=== PATIENT | male | born 1990 | race Caucasian/White ===

== ENCOUNTER 2017-04-05 20:22 | Emergency (ER) | payer MEDICAID, OTHER ==
[~2017-04-05] VITALS: Ht 172.7 cm; Wt 90.0 kg
[~2017-04-05 20:22] MED LIST: BENZ2TAB10 PO; CHOL100034 PO; FLUO-191 PO; HALO5 PO; QUET300T2 PO
[2017-04-05 20:43] LABS: BASOPHILS # (AUTO) 0.04 K/uL (0.00-0.20); BASOPHILS % (AUTO) 0.6 % (0.0-2.0); EOSINOPHILS % (AUTO) 4.13 % (1.0-6.0); HEMATOCRIT 41.4 % (41-53); HEMOGLOBIN 13.9 g/dL (13.5-17.5); LYMPHOCYTES # (AUTO) 3.3 K/uL (1.0-4.8); MEAN CORPUSCULAR HEMOGLOBIN 29.3 pg (26.0-34.0); MEAN CORPUSCULAR HGB CONC 33.6 G/dL (31.0-37.0); MEAN CORPUSCULAR VOLUME 87 fL (80-100); MONOCYTES # (AUTO) 0.9 K/uL (0.1-1.0); MONOCYTES % (AUTO) 12.3 % (2.0-9.0); NEUTROPHILS # (AUTO) 2.8 K/uL (1.8-7.7); PLATELET COUNT (AUTO) 189 K/uL (150-450); RED BLOOD CELL COUNT(AUTO) 4.74 MIL/uL (4.50-5.90); RED CELL DISTRIBUTION WIDTH 13.6 % (11.5-14.5); WHITE BLOOD COUNT (AUTO) 7.3 K/uL (4.5-11.0)
[2017-04-05 20:53] LABS: ANION GAP 7 mmol/L (8-16); CALCIUM, TOTAL 8.7 mg/dL (8.8-10.5); CARBON DIOXIDE 31 mmol/L (22-29); CHLORIDE 105 mmol/L (98-107); CREATININE 0.69 mg/dL (0.60-1.30); GLOMERULAR FILTR. RATE CALC > 60 mL/min (>60); POTASSIUM 4.1 mmol/L (3.5-5.1); SODIUM SERUM 143 mmol/L (136-145); UREA NITROGEN, BLOOD 7 mg/dL (7-18)
[2017-04-05 20:59] LABS: ALANINE AMINOTRANSFERASE 25 U/L (12-78); ALBUMIN 3.8 g/dL (3.4-5.0); ASPARTATE AMINOTRANSFERASE 22 U/L (15-37); BILIRUBIN,TOTAL 0.2 mg/dL (0.1-1.0)
[2017-04-06] MEDS ORDERED: LORazepam 2 MG/ML VIAL IVP ONE (00:45)
[2017-04-06] MEDS ORDERED: LORazepam 2 MG/ML VIAL IM ONE (00:45)
[2017-04-06] MEDS ORDERED: HALOPERIDOL LACTATE 5 MG/ML VIAL IM ONE (00:45)
[2017-04-06] MEDS ORDERED: DiphenhydrAMINE HCL 50 MG/ML VIAL IM ONE (00:45)
[2017-04-06 05:30] VITALS: BP 121/72
== END 2017-04-06 05:58 | disposition home or self-care (01) ==
LOC: EMS 20:24
DX: F15.151 Other stimulant abuse with stimulant-induced psychotic disorder with hallucinations (principal); F20.9 Schizophrenia, unspecified; F17.210 Nicotine dependence, cigarettes, uncomplicated
CPT/HCPCS: 36415; 80053; 80307; 85025; 96372; 99284; G0480; J1200; J1630; J2060

== ENCOUNTER 2017-04-22 11:09 | Inpatient (IN) | payer MEDICAID ==
[~2017-04-22] VITALS: Ht 180.3 cm; Wt 93.9 kg
[2017-04-22 12:32] VITALS: BP 140/75
[2017-04-22] MEDS ORDERED: HALO10 PO (12:43)
[2017-04-22] MEDS ORDERED: ZOLPIDEM TARTRATE 10 MG TABLET PO PRN (12:45)
[2017-04-22] MEDS ORDERED: LORazepam 2 MG TABLET PO PRN (12:45)
[2017-04-22] MEDS ORDERED: HALOPERIDOL 5 MG TABLET PO PRN (12:45)
[2017-04-22] MEDS ORDERED: INFLUENZA VIRUS VACCINE QVS 2017-18 (3YR+)/PF 60 MCG/0.5 ML SYRINGE IM ONE (15:00)
[2017-04-22 16:08] VITALS: BP 120/72
[2017-04-22] MEDS: BENZTROPINE MESYLATE 2 MG TABLET PO SCH (16:20)
[2017-04-22] MEDS: HALOPERIDOL 10 MG TABLET PO SCH (20:29)
[2017-04-23 01:32] VITALS: BP 110/64
[2017-04-23 07:46] LABS: BASOPHILS % (AUTO) 0.5 % (0.0-2.0); EOSINOPHILS % (AUTO) 2.6 % (1.0-6.0); HEMOGLOBIN 13.7 g/dL (13.5-17.5); LYMPHOCYTES # (AUTO) 2.1 K/uL (1.0-4.8); LYMPHOCYTES % (AUTO) 29.1 % (22.0-44.0); MEAN CORPUSCULAR HEMOGLOBIN 29.7 pg (26.0-34.0); MEAN CORPUSCULAR HGB CONC 34.2 G/dL (31.0-37.0); MEAN CORPUSCULAR VOLUME 87 fL (80-100); MONOCYTES # (AUTO) 0.8 K/uL (0.1-1.0); MONOCYTES % (AUTO) 11.2 % (2.0-9.0); NEUTROPHILS % (AUTO) 56.6 % (40.0-70.0); PLATELET COUNT (AUTO) 192 K/uL (150-450); RED CELL DISTRIBUTION WIDTH 13.8 % (11.5-14.5); WHITE BLOOD COUNT (AUTO) 7.2 K/uL (4.5-11.0)
[2017-04-23 07:54] LABS: HEMOGLOBIN A1C 5.7 % (4.5-6.2)
[2017-04-23 08:12] LABS: APPEARANCE,URINE TURBID (CLEAR); GLUCOSE, URINE (UA) NEGATIVE (NEGATIVE); KETONES,URINE NEGATIVE (NEGATIVE); LEUKOCYTE ESTERASE ,URINE NEGATIVE (NEGATIVE); OCCULT BLOOD,URINE NEGATIVE (NEGATIVE); PROTEIN,URINE POS 1+ (NEGATIVE)
[2017-04-23 08:28] LABS: ALANINE AMINOTRANSFERASE 40 U/L (12-78); ALBUMIN 3.7 g/dL (3.4-5.0); ANION GAP 8 mmol/L (8-16); ASPARTATE AMINOTRANSFERASE 35 U/L (15-37); BILIRUBIN,TOTAL 0.9 mg/dL (0.1-1.0); CALCIUM, TOTAL 8.5 mg/dL (8.8-10.5); CARBON DIOXIDE 29 mmol/L (22-29); CHLORIDE 102 mmol/L (98-107); CHOL/HDL RATIO 3.5 (4.2-7.3); CREATININE 0.78 mg/dL (0.60-1.30); GLOMERULAR FILTR. RATE CALC > 60 mL/min (>60); POTASSIUM 3.8 mmol/L (3.5-5.1); SODIUM SERUM 139 mmol/L (136-145); THYROID STIMULATING HORMONE 1.56 uIU/mL (0.36-3.74); TOTAL PROTEIN, SERUM 6.2 g/dL (6.4-8.2); UREA NITROGEN, BLOOD 13 mg/dL (7-18)
[2017-04-23 08:51] LABS: ADD UA MICROSCOPIC YES
[2017-04-23 08:53] LABS: RBC,URINE None Seen /HPF (0-2); WBC,URINE None Seen /HPF (0-5)
[2017-04-23 08:54] LABS: AMORPHOUS SEDIMENT,UR Many /LPF (None Seen)
[2017-04-23] MEDS: BENZTROPINE MESYLATE 2 MG TABLET PO SCH ×2 (08:54→16:07)
[2017-04-23] MEDS: FLUoxetine HCL 20 MG CAPSULE PO SCH (08:55)
[2017-04-23 08:56] VITALS: BP 129/73
[2017-04-23 16:00] VITALS: BP 106/66
[2017-04-23] MEDS: OLANZapine 10 MG TABLET PO SCH (20:31)
[2017-04-23] MEDS: HALOPERIDOL 10 MG TABLET PO SCH (20:31)
[2017-04-24 00:01] VITALS: BP 103/60
[2017-04-24 08:37] VITALS: BP 99/63
[2017-04-24] MEDS: FLUoxetine HCL 20 MG CAPSULE PO SCH (08:58)
[2017-04-24] MEDS: BENZTROPINE MESYLATE 2 MG TABLET PO SCH ×2 (08:59→16:56)
[2017-04-24 16:04] VITALS: BP 103/60
[2017-04-24] MEDS: HALOPERIDOL 10 MG TABLET PO SCH (20:11)
[2017-04-24] MEDS: OLANZapine 10 MG TABLET PO SCH (20:12)
[2017-04-25 01:15] VITALS: BP 110/62
[2017-04-25 08:01] VITALS: BP 117/73
[2017-04-25] MEDS: FLUoxetine HCL 20 MG CAPSULE PO SCH (08:36)
[2017-04-25] MEDS: BENZTROPINE MESYLATE 2 MG TABLET PO SCH ×2 (08:36→16:16)
[2017-04-25] MEDS ORDERED: BENZOCAINE/MENTHOL LOZENGE MM PRN (08:45)
[2017-04-25] MEDS ORDERED: IBUPROFEN 600 MG TABLET PO PRN (08:45)
[2017-04-25] MEDS ORDERED: MAGNESIUM HYDROXIDE SUSPENSION 30 ML UDCUP PO PRN (08:45)
[2017-04-25] MEDS ORDERED: ACETAMINOPHEN 325 MG TABLET PO PRN (08:45)
[2017-04-25] MEDS ORDERED: CloNIDine HCL 0.1 MG TABLET PO PRN (08:45)
[2017-04-25] MEDS ORDERED: BACITRACIN 28.4 GM OINTMENT TP PRN (08:45)
[2017-04-25] MEDS ORDERED: MAG HYDROX/AL HYDROX/SIMETH ES 30 ML SUSPENSION UDCUP PO PRN (08:45)
[2017-04-25] MEDS ORDERED: ONDANSETRON HCL 4 MG TABLET PO PRN (08:45)
[2017-04-25] MEDS ORDERED: LOPERAMIDE HCL 2 MG CAPSULE PO PRN (08:45)
[2017-04-25] MEDS ORDERED: ALBUTEROL SULFATE HFA 90 MCG/PUFF 8 GM INHALER IH PRN (08:45)
[2017-04-25] MEDS ORDERED: PETROLATUM,WHITE 71 GM JELLY TP PRN (08:45)
[2017-04-25 16:02] VITALS: BP 107/61
[2017-04-25] MEDS: HALOPERIDOL 10 MG TABLET PO SCH (20:24)
[2017-04-25] MEDS: OLANZapine 10 MG TABLET PO SCH (20:24)
[2017-04-26 01:03] VITALS: BP 115/60
[2017-04-26 08:24] VITALS: BP 101/68
[2017-04-26] MEDS: FLUoxetine HCL 20 MG CAPSULE PO SCH (08:39)
[2017-04-26] MEDS: BENZTROPINE MESYLATE 2 MG TABLET PO SCH (08:39)
[2017-04-26] MEDS ORDERED: OLAN10TA3 PO (11:55)
[2017-04-26] MEDS ORDERED: FLUO-191 PO (11:58)
[2017-04-26] MEDS ORDERED: BENZ2TAB10 PO (11:58)
== END 2017-04-26 14:30 | disposition home or self-care (01) | DRG 750 ==
LOC: EDSTATUS 11:32 → B2S 13:05
PROVIDERS: ATTEND Psychiatry & Neurology Child & Adolescent Psychiatry
DX: F25.0 Schizoaffective disorder, bipolar type (principal); F23 Brief psychotic disorder; E55.9 Vitamin D deficiency, unspecified; G47.00 Insomnia, unspecified; F17.200 Nicotine dependence, unspecified, uncomplicated; F15.10 Other stimulant abuse, uncomplicated; F12.90 Cannabis use, unspecified, uncomplicated; Z71.6 Tobacco abuse counseling; Z71.51 Drug abuse counseling and surveillance of drug abuser; Z28.21 Immunization not carried out because of patient refusal
CPT/HCPCS: 80307; 83036; 84439; 84443

== ENCOUNTER 2017-05-02 15:11 | Inpatient (IN) | payer MEDICAID ==
[~2017-05-02] VITALS: Ht 180.3 cm; Wt 92.4 kg
[~2017-05-02 15:11] MED LIST changes: -CHOL100034 PO; +HALO10 PO; -HALO5 PO; +OLAN10TA3 PO; -QUET300T2 PO
[2017-05-02] MEDS ORDERED: ZOLPIDEM TARTRATE 10 MG TABLET PO PRN (16:15)
[2017-05-02] MEDS ORDERED: HALOPERIDOL LACTATE 5 MG/ML VIAL IM ONE (16:30)
[2017-05-02] MEDS ORDERED: DiphenhydrAMINE HCL 50 MG/ML VIAL IM ONE (16:30)
[2017-05-02] MEDS ORDERED: LORazepam 2 MG/ML VIAL IM ONE (16:30)
[2017-05-02] MEDS ORDERED: HALOPERIDOL LACTATE 5 MG/ML VIAL ONE (16:33)
[2017-05-02] MEDS ORDERED: DiphenhydrAMINE HCL 50 MG/ML VIAL ONE (16:33)
[2017-05-02] MEDS ORDERED: LORazepam 2 MG/ML VIAL ONE (16:33)
[2017-05-02 16:40] VITALS: BP 119/60
[2017-05-02] MEDS ORDERED: INFLUENZA VIRUS VACCINE QVS 2017-18 (3YR+)/PF 60 MCG/0.5 ML SYRINGE IM ONE (17:00)
[2017-05-02 17:15] VITALS: BP 114/69
[2017-05-03 05:47] VITALS: BP 117/83
[2017-05-03 08:14] LABS: BASOPHILS % (AUTO) 0.3 % (0.0-2.0); EOSINOPHILS % (AUTO) 4.2 % (1.0-6.0); HEMATOCRIT 39.8 % (41-53); HEMOGLOBIN 13.5 g/dL (13.5-17.5); LYMPHOCYTES # (AUTO) 1.5 K/uL (1.0-4.8); MEAN CORPUSCULAR HEMOGLOBIN 29.4 pg (26.0-34.0); MEAN CORPUSCULAR HGB CONC 33.8 G/dL (31.0-37.0); MEAN CORPUSCULAR VOLUME 87 fL (80-100); MONOCYTES # (AUTO) 0.7 K/uL (0.1-1.0); NEUTROPHILS # (AUTO) 3.8 K/uL (1.8-7.7); NEUTROPHILS % (AUTO) 60.5 % (40.0-70.0); PLATELET COUNT (AUTO) 175 K/uL (150-450); RED BLOOD CELL COUNT(AUTO) 4.57 MIL/uL (4.50-5.90); RED CELL DISTRIBUTION WIDTH 13.6 % (11.5-14.5); WHITE BLOOD COUNT (AUTO) 6.2 K/uL (4.5-11.0)
[2017-05-03] MEDS ORDERED: BENZOCAINE/MENTHOL LOZENGE MM PRN (09:15)
[2017-05-03] MEDS ORDERED: LOPERAMIDE HCL 2 MG CAPSULE PO PRN (09:15)
[2017-05-03] MEDS ORDERED: MAGNESIUM HYDROXIDE SUSPENSION 30 ML UDCUP PO PRN (09:15)
[2017-05-03] MEDS ORDERED: CloNIDine HCL 0.1 MG TABLET PO PRN (09:15)
[2017-05-03] MEDS ORDERED: ONDANSETRON HCL 4 MG TABLET PO PRN (09:15)
[2017-05-03] MEDS ORDERED: BACITRACIN 28.4 GM OINTMENT TP PRN (09:15)
[2017-05-03] MEDS ORDERED: ACETAMINOPHEN 325 MG TABLET PO PRN (09:15)
[2017-05-03] MEDS ORDERED: MAG HYDROX/AL HYDROX/SIMETH ES 30 ML SUSPENSION UDCUP PO PRN (09:15)
[2017-05-03] MEDS ORDERED: ALBUTEROL SULFATE HFA 90 MCG/PUFF 8 GM INHALER IH PRN (09:15)
[2017-05-03] MEDS ORDERED: PETROLATUM,WHITE 71 GM JELLY TP PRN (09:15)
[2017-05-03] MEDS ORDERED: IBUPROFEN 600 MG TABLET PO PRN (09:15)
[2017-05-03 09:34] LABS: ALANINE AMINOTRANSFERASE 28 U/L (12-78); ALBUMIN 3.4 g/dL (3.4-5.0); ANION GAP 5 mmol/L (8-16); ASPARTATE AMINOTRANSFERASE 25 U/L (15-37); BILIRUBIN,TOTAL 0.6 mg/dL (0.1-1.0); CALCIUM, TOTAL 8.5 mg/dL (8.8-10.5); CARBON DIOXIDE 29 mmol/L (22-29); CHLORIDE 105 mmol/L (98-107); CHOL/HDL RATIO 2.5 (4.2-7.3); CREATININE 0.68 mg/dL (0.60-1.30); GLOMERULAR FILTR. RATE CALC > 60 mL/min (>60); POTASSIUM 3.7 mmol/L (3.5-5.1); SODIUM SERUM 139 mmol/L (136-145); THYROID STIMULATING HORMONE 0.71 uIU/mL (0.36-3.74); TOTAL PROTEIN, SERUM 6.3 g/dL (6.4-8.2); UREA NITROGEN, BLOOD 11 mg/dL (7-18)
[2017-05-03 09:47] VITALS: BP 113/57
[2017-05-03] MEDS: NICOTINE 21 MG/24 HOUR PATCH TD SCH (09:56)
[2017-05-03] MEDS: FLUoxetine HCL 20 MG CAPSULE PO SCH (11:11)
[2017-05-03] MEDS: BENZTROPINE MESYLATE 2 MG TABLET PO SCH ×2 (11:11→16:11)
[2017-05-03 18:16] VITALS: BP 117/65
[2017-05-03] MEDS: OLANZapine 10 MG TABLET PO SCH (20:26)
[2017-05-03] MEDS: HALOPERIDOL 10 MG TABLET PO SCH (20:26)
[2017-05-04 07:30] VITALS: BP 120/66
[2017-05-04 08:25] VITALS: BP 111/64
[2017-05-04] MEDS: NICOTINE 21 MG/24 HOUR PATCH TD SCH (09:41)
[2017-05-04] MEDS: OMEGA-3/DHA/EPA/FISH OIL 500 MG CAPSULE PO SCH (09:43)
[2017-05-04] MEDS: BENZTROPINE MESYLATE 2 MG TABLET PO SCH ×2 (09:43→16:57)
[2017-05-04] MEDS: CHOLECALCIFEROL (VIT D3) 1,000 UNITS TABLET PO SCH (09:43)
[2017-05-04] MEDS: FLUoxetine HCL 20 MG CAPSULE PO SCH (09:43)
[2017-05-04] MEDS: LORazepam 2 MG TABLET PO PRN (16:57)
[2017-05-04 17:03] VITALS: BP 128/75
[2017-05-04] MEDS: OLANZapine 10 MG TABLET PO SCH (20:33)
[2017-05-04] MEDS: HALOPERIDOL 10 MG TABLET PO SCH (20:33)
[2017-05-05 07:46] VITALS: BP 120/68
[2017-05-05 08:40] VITALS: BP 127/68
[2017-05-05] MEDS: FLUoxetine HCL 20 MG CAPSULE PO SCH (09:00)
[2017-05-05] MEDS: OMEGA-3/DHA/EPA/FISH OIL 500 MG CAPSULE PO SCH (09:00)
[2017-05-05] MEDS: BENZTROPINE MESYLATE 2 MG TABLET PO SCH ×2 (09:00→16:31)
[2017-05-05] MEDS: CHOLECALCIFEROL (VIT D3) 1,000 UNITS TABLET PO SCH (09:00)
[2017-05-05] MEDS: NICOTINE 21 MG/24 HOUR PATCH TD SCH (09:00)
[2017-05-05 16:00] VITALS: BP 118/68
[2017-05-05] MEDS: LORazepam 2 MG TABLET PO PRN (16:31)
[2017-05-05] MEDS: OLANZapine 10 MG TABLET PO SCH (20:42)
[2017-05-05] MEDS: HALOPERIDOL 10 MG TABLET PO SCH (20:42)
[2017-05-06 07:07] VITALS: BP 112/72
[2017-05-06] MEDS: NICOTINE 21 MG/24 HOUR PATCH TD SCH (09:00)
[2017-05-06 09:11] VITALS: BP 111/65
[2017-05-06] MEDS: BENZTROPINE MESYLATE 2 MG TABLET PO SCH ×2 (09:44→17:03)
[2017-05-06] MEDS: LORazepam 2 MG TABLET PO PRN ×2 (09:44→17:03)
[2017-05-06] MEDS: OMEGA-3/DHA/EPA/FISH OIL 500 MG CAPSULE PO SCH (09:44)
[2017-05-06] MEDS: FLUoxetine HCL 20 MG CAPSULE PO SCH (09:44)
[2017-05-06] MEDS: CHOLECALCIFEROL (VIT D3) 1,000 UNITS TABLET PO SCH (09:44)
[2017-05-06 16:00] VITALS: BP 127/79
[2017-05-06] MEDS: HALOPERIDOL 10 MG TABLET PO SCH (20:57)
[2017-05-07 06:40] VITALS: BP 108/67
[2017-05-07 08:10] VITALS: BP 121/71
[2017-05-07] MEDS: NICOTINE 21 MG/24 HOUR PATCH TD SCH (08:48)
[2017-05-07] MEDS: FLUoxetine HCL 20 MG CAPSULE PO SCH (08:48)
[2017-05-07] MEDS: CHOLECALCIFEROL (VIT D3) 1,000 UNITS TABLET PO SCH (08:48)
[2017-05-07] MEDS: OMEGA-3/DHA/EPA/FISH OIL 500 MG CAPSULE PO SCH (08:48)
[2017-05-07] MEDS: BENZTROPINE MESYLATE 2 MG TABLET PO SCH ×2 (08:48→16:20)
[2017-05-07 16:19] VITALS: BP 117/62
[2017-05-07] MEDS: HALOPERIDOL 10 MG TABLET PO SCH (20:30)
[2017-05-08 00:46] VITALS: BP 119/83
[2017-05-08] MEDS: FLUoxetine HCL 20 MG CAPSULE PO SCH (08:11)
[2017-05-08] MEDS: CHOLECALCIFEROL (VIT D3) 1,000 UNITS TABLET PO SCH (08:11)
[2017-05-08] MEDS: OMEGA-3/DHA/EPA/FISH OIL 500 MG CAPSULE PO SCH (08:11)
[2017-05-08] MEDS: NICOTINE 21 MG/24 HOUR PATCH TD SCH (08:11)
[2017-05-08] MEDS: BENZTROPINE MESYLATE 2 MG TABLET PO SCH (08:11)
[2017-05-08 08:42] VITALS: BP 135/79
[2017-05-08] MEDS ORDERED: VITAD1000 PO (12:54)
== END 2017-05-08 13:15 | disposition home or self-care (01) | DRG 750 ==
LOC: B3A 16:39
PROVIDERS: ADMIT Psychiatry & Neurology Child & Adolescent Psychiatry; ATTEND Psychiatry & Neurology Child & Adolescent Psychiatry
DX: F25.0 Schizoaffective disorder, bipolar type (principal); R45.851 Suicidal ideations; F41.9 Anxiety disorder, unspecified; F17.200 Nicotine dependence, unspecified, uncomplicated; F15.10 Other stimulant abuse, uncomplicated; E55.9 Vitamin D deficiency, unspecified; G47.00 Insomnia, unspecified; E78.5 Hyperlipidemia, unspecified; M54.5 Low back pain; F12.90 Cannabis use, unspecified, uncomplicated; Z71.51 Drug abuse counseling and surveillance of drug abuser; Z71.6 Tobacco abuse counseling; Z79.899 Other long term (current) drug therapy; Z28.21 Immunization not carried out because of patient refusal
CPT/HCPCS: 83036; 84439; 84443; 87081; 90471; J1200; J1630; J2060

== ENCOUNTER 2017-07-10 19:07 | Inpatient (IN) | payer MEDICAID ==
[~2017-07-10] VITALS: Ht 170.2 cm; Wt 87.1 kg
[~2017-07-10 19:07] MED LIST changes: -OLAN10TA3 PO; +VITAD1000 PO
[2017-07-10] MEDS ORDERED: HALOPERIDOL 5 MG TABLET PO PRN (19:45)
[2017-07-10] MEDS ORDERED: ZOLPIDEM TARTRATE 10 MG TABLET PO PRN (19:45)
[2017-07-10 20:27] VITALS: BP 135/83
[2017-07-10] MEDS: OLANZapine 10 MG TABLET PO SCH (20:38)
[2017-07-10] MEDS: BENZTROPINE MESYLATE 2 MG TABLET PO SCH (20:38)
[2017-07-10] MEDS: LORazepam 2 MG TABLET PO PRN (20:57)
[2017-07-11 02:17] VITALS: BP 133/70
[2017-07-11 08:02] VITALS: BP 130/76
[2017-07-11 08:43] LABS: BASOPHILS % (AUTO) 0.5 % (0.0-2.0); EOSINOPHILS % (AUTO) 2.9 % (1.0-6.0); HEMATOCRIT 42.1 % (41-53); LYMPHOCYTES # (AUTO) 2.3 K/uL (1.0-4.8); LYMPHOCYTES % (AUTO) 33.9 % (22.0-44.0); MEAN CORPUSCULAR HEMOGLOBIN 29.3 pg (26.0-34.0); MEAN CORPUSCULAR HGB CONC 33.4 G/dL (31.0-37.0); MEAN CORPUSCULAR VOLUME 88 fL (80-100); MONOCYTES # (AUTO) 0.7 K/uL (0.1-1.0); MONOCYTES % (AUTO) 9.8 % (2.0-9.0); NEUTROPHILS # (AUTO) 3.6 K/uL (1.8-7.7); NEUTROPHILS % (AUTO) 52.9 % (40.0-70.0); PLATELET COUNT (AUTO) 204 K/uL (150-450); RED BLOOD CELL COUNT(AUTO) 4.79 MIL/uL (4.50-5.90); RED CELL DISTRIBUTION WIDTH 13.2 % (11.5-14.5)
[2017-07-11] MEDS: FLUoxetine HCL 20 MG CAPSULE PO SCH (08:54)
[2017-07-11] MEDS: OLANZapine 5 MG RAPDIS TABLET PO PRN (08:54)
[2017-07-11] MEDS: BENZTROPINE MESYLATE 2 MG TABLET PO SCH ×2 (08:55→16:38)
[2017-07-11] MEDS: OLANZapine 10 MG TABLET PO SCH ×2 (09:00→16:38)
[2017-07-11 09:03] LABS: HEMOGLOBIN A1C 5.7 % (4.5-6.2)
[2017-07-11 09:14] LABS: APPEARANCE,URINE CLEAR (CLEAR); BILIRUBIN,URINE NEGATIVE (NEGATIVE); GLUCOSE, URINE (UA) NEGATIVE (NEGATIVE); KETONES,URINE NEGATIVE (NEGATIVE); LEUKOCYTE ESTERASE ,URINE NEGATIVE (NEGATIVE); NITRATE,URINE NEGATIVE (NEGATIVE); OCCULT BLOOD,URINE NEGATIVE (NEGATIVE); PH,URINE 6.5 (5.0-8.0); PROTEIN,URINE NEGATIVE (NEGATIVE); UROBILINOGEN,URINE 0.2 mg/dL (<=1.0)
[2017-07-11 09:34] LABS: ALANINE AMINOTRANSFERASE 21 U/L (12-78); ALBUMIN 3.3 g/dL (3.4-5.0); ALKALINE PHOSPHATASE 88 U/L (46-116); ANION GAP 4 mmol/L (8-16); ASPARTATE AMINOTRANSFERASE 14 U/L (15-37); BILIRUBIN,TOTAL 0.1 mg/dL (0.1-1.0); CALCIUM, TOTAL 8.6 mg/dL (8.8-10.5); CARBON DIOXIDE 31 mmol/L (22-29); CHLORIDE 104 mmol/L (98-107); CHOL/HDL RATIO 2.8 (4.2-7.3); CHOLESTEROL 135 mg/dL (131-200); CREATININE 0.78 mg/dL (0.60-1.30); FREE T4 (FREE THYROXINE) 0.86 ng/dL (0.76-1.46); GLOMERULAR FILTR. RATE CALC > 60 mL/min (>60); GLUCOSE,RANDOM 83 mg/dL (70-110); HDL CHOLESTEROL 48 mg/dL (40-60); LDL CHOL (CALC.) 68 mg/dL (0-130); POTASSIUM 3.8 mmol/L (3.5-5.1); SODIUM SERUM 139 mmol/L (136-145); THYROID STIMULATING HORMONE 1.16 uIU/mL (0.36-3.74); TOTAL PROTEIN, SERUM 6.4 g/dL (6.4-8.2); TRIGLYCERIDES 96 mg/dL (15-150); UREA NITROGEN, BLOOD 12 mg/dL (7-18)
[2017-07-11 16:02] VITALS: BP 130/86
[2017-07-11] MEDS ORDERED: ALBUTEROL SULFATE HFA 90 MCG/PUFF 8 GM INHALER IH PRN (19:30)
[2017-07-11] MEDS ORDERED: CloNIDine HCL 0.1 MG TABLET PO PRN (19:30)
[2017-07-11] MEDS ORDERED: MAG HYDROX/AL HYDROX/SIMETH ES 30 ML SUSPENSION UDCUP PO PRN (19:30)
[2017-07-11] MEDS ORDERED: PETROLATUM,WHITE 71 GM JELLY TP PRN (19:30)
[2017-07-11] MEDS ORDERED: MAGNESIUM HYDROXIDE SUSPENSION 30 ML UDCUP PO PRN (19:30)
[2017-07-11] MEDS ORDERED: BENZOCAINE/MENTHOL LOZENGE MM PRN (19:30)
[2017-07-11] MEDS ORDERED: IBUPROFEN 600 MG TABLET PO PRN (19:30)
[2017-07-11] MEDS ORDERED: ONDANSETRON HCL 4 MG TABLET PO PRN (19:30)
[2017-07-11] MEDS ORDERED: LOPERAMIDE HCL 2 MG CAPSULE PO PRN (19:30)
[2017-07-11] MEDS ORDERED: ACETAMINOPHEN 325 MG TABLET PO PRN (19:30)
[2017-07-11] MEDS ORDERED: BACITRACIN 28.4 GM OINTMENT TP PRN (19:30)
[2017-07-12 06:27] VITALS: BP 124/68
[2017-07-12 08:13] VITALS: BP 122/68
[2017-07-12] MEDS: BENZTROPINE MESYLATE 2 MG TABLET PO SCH ×2 (08:58→17:08)
[2017-07-12] MEDS: FLUoxetine HCL 20 MG CAPSULE PO SCH (08:58)
[2017-07-12] MEDS: CHOLECALCIFEROL (VIT D3) 1,000 UNITS TABLET PO SCH (08:58)
[2017-07-12] MEDS: OLANZapine 10 MG TABLET PO SCH ×2 (09:01→17:07)
[2017-07-12 16:00] VITALS: BP 108/76
[2017-07-12] MEDS: LORazepam 2 MG TABLET PO PRN (17:07)
[2017-07-13 06:52] VITALS: BP 104/62
[2017-07-13 08:09] VITALS: BP 110/65
[2017-07-13] MEDS: BENZTROPINE MESYLATE 2 MG TABLET PO SCH ×2 (09:02→16:23)
[2017-07-13] MEDS: FLUoxetine HCL 20 MG CAPSULE PO SCH (09:02)
[2017-07-13] MEDS: CHOLECALCIFEROL (VIT D3) 1,000 UNITS TABLET PO SCH (09:03)
[2017-07-13] MEDS: OLANZapine 10 MG TABLET PO SCH ×2 (09:03→16:23)
[2017-07-13 16:17] VITALS: BP 129/61
[2017-07-13] MEDS: LORazepam 2 MG TABLET PO PRN (16:24)
[2017-07-14 06:28] VITALS: BP 122/72
[2017-07-14 08:09] VITALS: BP 120/64
[2017-07-14] MEDS: LORazepam 2 MG TABLET PO PRN ×2 (08:51→16:27)
[2017-07-14] MEDS: FLUoxetine HCL 20 MG CAPSULE PO SCH (08:51)
[2017-07-14] MEDS: OLANZapine 10 MG TABLET PO SCH ×2 (08:51→16:27)
[2017-07-14] MEDS: CHOLECALCIFEROL (VIT D3) 1,000 UNITS TABLET PO SCH (08:51)
[2017-07-14] MEDS: BENZTROPINE MESYLATE 2 MG TABLET PO SCH ×2 (08:51→16:27)
[2017-07-14 16:00] VITALS: BP 123/70
[2017-07-15 00:35] VITALS: BP 122/65
[2017-07-15 08:28] VITALS: BP 134/75
[2017-07-15] MEDS: CHOLECALCIFEROL (VIT D3) 1,000 UNITS TABLET PO SCH (08:42)
[2017-07-15] MEDS: BENZTROPINE MESYLATE 2 MG TABLET PO SCH ×2 (08:42→16:56)
[2017-07-15] MEDS: LORazepam 2 MG TABLET PO PRN ×3 (08:42→17:08)
[2017-07-15] MEDS: FLUoxetine HCL 20 MG CAPSULE PO SCH (08:42)
[2017-07-15] MEDS: OLANZapine 10 MG TABLET PO SCH ×2 (08:42→16:56)
[2017-07-15] MEDS: OLANZapine 5 MG RAPDIS TABLET PO PRN (13:06)
[2017-07-15 16:00] VITALS: BP 116/86
[2017-07-16 05:22] VITALS: BP 133/83
[2017-07-16] MEDS: OLANZapine 10 MG TABLET PO SCH ×2 (09:00→16:16)
[2017-07-16] MEDS: FLUoxetine HCL 20 MG CAPSULE PO SCH (09:00)
[2017-07-16] MEDS: BENZTROPINE MESYLATE 2 MG TABLET PO SCH ×2 (09:00→16:17)
[2017-07-16] MEDS: CHOLECALCIFEROL (VIT D3) 1,000 UNITS TABLET PO SCH (09:00)
[2017-07-16 10:00] VITALS: BP 120/65
[2017-07-16] MEDS: LORazepam 2 MG TABLET PO PRN (16:17)
[2017-07-16 16:58] VITALS: BP 115/65
[2017-07-17 04:22] VITALS: BP 112/60
[2017-07-17 08:00] VITALS: BP 154/115
[2017-07-17] MEDS: FLUoxetine HCL 20 MG CAPSULE PO SCH (09:36)
[2017-07-17] MEDS: BENZTROPINE MESYLATE 2 MG TABLET PO SCH ×2 (09:36→16:41)
[2017-07-17] MEDS: CHOLECALCIFEROL (VIT D3) 1,000 UNITS TABLET PO SCH (09:36)
[2017-07-17] MEDS: OLANZapine 10 MG TABLET PO SCH ×2 (09:39→16:41)
[2017-07-17] MEDS: LORazepam 2 MG TABLET PO PRN (16:41)
[2017-07-17 16:48] VITALS: BP 118/76
[2017-07-18 03:48] VITALS: BP 132/85
[2017-07-18 08:10] VITALS: BP 112/63
[2017-07-18] MEDS: FLUoxetine HCL 20 MG CAPSULE PO SCH (09:29)
[2017-07-18] MEDS: OLANZapine 5 MG RAPDIS TABLET PO PRN (09:29)
[2017-07-18] MEDS: CHOLECALCIFEROL (VIT D3) 1,000 UNITS TABLET PO SCH (09:30)
[2017-07-18] MEDS: BENZTROPINE MESYLATE 2 MG TABLET PO SCH (09:30)
[2017-07-18] MEDS: OLANZapine 10 MG TABLET PO SCH (09:32)
[2017-07-18] MEDS ORDERED: OLAN10TA3 PO (11:11)
== END 2017-07-18 13:30 | disposition home or self-care (01) | DRG 750 ==
LOC: B2S 19:15 → B3A 21:53
PROVIDERS: ADMIT Psychiatry & Neurology Psychiatry; ATTEND Psychiatry & Neurology Psychiatry
DX: F20.9 Schizophrenia, unspecified (principal); F15.20 Other stimulant dependence, uncomplicated; R45.851 Suicidal ideations; F29 Unspecified psychosis not due to a substance or known physiological condition; E55.9 Vitamin D deficiency, unspecified; F10.10 Alcohol abuse, uncomplicated; F17.200 Nicotine dependence, unspecified, uncomplicated; F41.9 Anxiety disorder, unspecified; G47.00 Insomnia, unspecified; K59.00 Constipation, unspecified; M54.5 Low back pain; Z59.0 Homelessness
CPT/HCPCS: 83036; 84439; 84443

== ENCOUNTER 2017-08-06 15:09 | Emergency (ER) | payer MEDICAID, OTHER ==
[~2017-08-06] VITALS: Ht 175.3 cm; Wt 70.5 kg
[~2017-08-06 15:09] MED LIST changes: -HALO10 PO; +OLAN10TA3 PO; -VITAD1000 PO
[2017-08-06] MEDS ORDERED: RISP1TAB89 PO (15:15)
[2017-08-06] MEDS ORDERED: QUET50TA PO (15:15)
[2017-08-06 16:19] LABS: BASOPHILS % (AUTO) 0.7 % (0.0-2.0); EOSINOPHILS % (AUTO) 2.6 % (1.0-6.0); HEMATOCRIT 44.4 % (41-53); HEMOGLOBIN 14.9 g/dL (13.5-17.5); LYMPHOCYTES # (AUTO) 2.8 K/uL (1.0-4.8); MEAN CORPUSCULAR HEMOGLOBIN 28.8 pg (26.0-34.0); MEAN CORPUSCULAR HGB CONC 33.6 G/dL (31.0-37.0); MEAN CORPUSCULAR VOLUME 86 fL (80-100); MONOCYTES # (AUTO) 0.7 K/uL (0.1-1.0); MONOCYTES % (AUTO) 9.9 % (2.0-9.0); NEUTROPHILS # (AUTO) 3.4 K/uL (1.8-7.7); NEUTROPHILS % (AUTO) 47.8 % (40.0-70.0); PLATELET COUNT (AUTO) 240 K/uL (150-450); RED BLOOD CELL COUNT(AUTO) 5.18 MIL/uL (4.50-5.90); RED CELL DISTRIBUTION WIDTH 13.4 % (11.5-14.5)
[2017-08-06 16:30] LABS: ANION GAP 8 mmol/L (8-16); CALCIUM, TOTAL 9.2 mg/dL (8.8-10.5); CARBON DIOXIDE 30 mmol/L (22-29); CHLORIDE 102 mmol/L (98-107); CREATININE 0.62 mg/dL (0.60-1.30); GLOMERULAR FILTR. RATE CALC > 60 mL/min (>60); GLUCOSE,RANDOM 89 mg/dL (70-110); SODIUM SERUM 140 mmol/L (136-145); UREA NITROGEN, BLOOD 6 mg/dL (7-18)
[2017-08-06 16:36] LABS: ALANINE AMINOTRANSFERASE 23 U/L (12-78); ALKALINE PHOSPHATASE 118 U/L (46-116); ASPARTATE AMINOTRANSFERASE 17 U/L (15-37); BILIRUBIN,TOTAL 0.2 mg/dL (0.1-1.0); TOTAL PROTEIN, SERUM 7.3 g/dL (6.4-8.2)
[2017-08-06 18:51] VITALS: BP 134/85
[2017-08-06 18:53] LABS: AMPHET/METH SCREEN,URINE NEGATIVE (NEGATIVE); BARBITURATE SCREEN, URINE NEGATIVE (NEGATIVE); BENZODIAZEPINES SCREEN,URINE NEGATIVE (NEGATIVE); CANNABINOID SCREEN,URINE NEGATIVE (NEGATIVE); COCAINE SCREEN,URINE NEGATIVE (NEGATIVE); METHADONE SCREEN, URINE NEGATIVE (NEGATIVE); OPIATE SCREEN,URINE NEGATIVE (NEGATIVE); PHENCYCLIDINE SCREEN,URINE NEGATIVE (NEGATIVE)
== END 2017-08-06 18:58 | disposition home or self-care (01) ==
LOC: EMS 15:14
DX: F29 Unspecified psychosis not due to a substance or known physiological condition (principal); F19.10 Other psychoactive substance abuse, uncomplicated; F20.9 Schizophrenia, unspecified; F17.210 Nicotine dependence, cigarettes, uncomplicated; Z91.14 Patient's other noncompliance with medication regimen
CPT/HCPCS: 36415; 80053; 80307; 85025; 99284; G0480

== ENCOUNTER 2017-09-26 20:49 | Emergency (ER) | payer OTHER ==
[~2017-09-26] VITALS: Ht 172.7 cm; Wt 85.5 kg
[~2017-09-26 20:49] MED LIST changes: +QUET50TA PO; +RISP1TAB89 PO
[2017-09-26 21:15] LABS: BASOPHILS % (AUTO) 0.7 % (0.0-2.0); EOSINOPHILS % (AUTO) 2.5 % (1.0-6.0); HEMATOCRIT 42.1 % (41-53); HEMOGLOBIN 14.1 g/dL (13.5-17.5); LYMPHOCYTES # (AUTO) 3.3 K/uL (1.0-4.8); LYMPHOCYTES % (AUTO) 33.9 % (22.0-44.0); MEAN CORPUSCULAR HEMOGLOBIN 28.7 pg (26.0-34.0); MEAN CORPUSCULAR HGB CONC 33.4 G/dL (31.0-37.0); MEAN CORPUSCULAR VOLUME 86 fL (80-100); MONOCYTES # (AUTO) 0.8 K/uL (0.1-1.0); MONOCYTES % (AUTO) 8.4 % (2.0-9.0); NEUTROPHILS # (AUTO) 5.3 K/uL (1.8-7.7); NEUTROPHILS % (AUTO) 54.5 % (40.0-70.0); PLATELET COUNT (AUTO) 251 K/uL (150-450); RED BLOOD CELL COUNT(AUTO) 4.91 MIL/uL (4.50-5.90); RED CELL DISTRIBUTION WIDTH 13.5 % (11.5-14.5)
[2017-09-26 21:26] LABS: ANION GAP 10 mmol/L (8-16); CALCIUM, TOTAL 9.2 mg/dL (8.8-10.5); CARBON DIOXIDE 25 mmol/L (22-29); CHLORIDE 103 mmol/L (98-107); CREATININE 0.71 mg/dL (0.60-1.30); GLOMERULAR FILTR. RATE CALC > 60 mL/min (>60); GLUCOSE,RANDOM 85 mg/dL (70-110); POTASSIUM 4.9 mmol/L (3.5-5.1); SODIUM SERUM 138 mmol/L (136-145); UREA NITROGEN, BLOOD 15 mg/dL (7-18)
[2017-09-26 21:26] LABS: AMPHET/METH SCREEN,URINE NEGATIVE (NEGATIVE); BARBITURATE SCREEN, URINE NEGATIVE (NEGATIVE); BENZODIAZEPINES SCREEN,URINE NEGATIVE (NEGATIVE); CANNABINOID SCREEN,URINE NEGATIVE (NEGATIVE); COCAINE SCREEN,URINE NEGATIVE (NEGATIVE); METHADONE SCREEN, URINE NEGATIVE (NEGATIVE); OPIATE SCREEN,URINE NEGATIVE (NEGATIVE); PHENCYCLIDINE SCREEN,URINE NEGATIVE (NEGATIVE)
[2017-09-26 21:31] LABS: ALANINE AMINOTRANSFERASE 22 U/L (12-78); ALBUMIN 3.7 g/dL (3.4-5.0); ALKALINE PHOSPHATASE 121 U/L (46-116); ASPARTATE AMINOTRANSFERASE 32 U/L (15-37); BILIRUBIN,TOTAL 0.4 mg/dL (0.1-1.0); TOTAL PROTEIN, SERUM 7.2 g/dL (6.4-8.2)
[2017-09-27 02:00] VITALS: BP 124/76
[2017-09-27] MEDS ORDERED: DiphenhydrAMINE HCL 25 MG CAPSULE PO ONE ×2 (02:15→03:00)
[2017-09-27] MEDS ORDERED: HALOPERIDOL 5 MG TABLET PO ONE ×2 (02:15→03:00)
[2017-09-27] MEDS ORDERED: LORazepam 1 MG TABLET PO ONE ×2 (02:15→03:00)
== END 2017-09-27 06:05 | disposition home or self-care (01) ==
LOC: EMS 20:51
DX: F29 Unspecified psychosis not due to a substance or known physiological condition (principal); F20.9 Schizophrenia, unspecified; F15.90 Other stimulant use, unspecified, uncomplicated; F17.210 Nicotine dependence, cigarettes, uncomplicated
CPT/HCPCS: 36415; 80053; 80307; 85025; 99284; G0480

== ENCOUNTER 2017-10-20 14:54 | Inpatient (IN) | payer MEDICAID ==
[~2017-10-20] VITALS: Ht 172.7 cm; Wt 84.1 kg
[2017-10-20] MEDS ORDERED: ZOLPIDEM TARTRATE 10 MG TABLET PO PRN (15:15)
[2017-10-20 15:26] VITALS: BP 138/80
[2017-10-20 16:05] VITALS: BP 128/96
[2017-10-20] MEDS: OLANZapine 10 MG TABLET PO SCH (21:09)
[2017-10-21 06:26] VITALS: BP 101/60
[2017-10-21 08:06] VITALS: BP 120/69
[2017-10-21 08:30] LABS: BASOPHILS % (AUTO) 0.4 % (0.0-2.0); EOSINOPHILS % (AUTO) 1.8 % (1.0-6.0); HEMATOCRIT 41.5 % (41-53); HEMOGLOBIN 13.9 g/dL (13.5-17.5); LYMPHOCYTES # (AUTO) 2.7 K/uL (1.0-4.8); LYMPHOCYTES % (AUTO) 37.6 % (22.0-44.0); MEAN CORPUSCULAR HEMOGLOBIN 28.9 pg (26.0-34.0); MEAN CORPUSCULAR HGB CONC 33.6 G/dL (31.0-37.0); MEAN CORPUSCULAR VOLUME 86 fL (80-100); MONOCYTES # (AUTO) 0.9 K/uL (0.1-1.0); MONOCYTES % (AUTO) 11.8 % (2.0-9.0); NEUTROPHILS # (AUTO) 3.5 K/uL (1.8-7.7); NEUTROPHILS % (AUTO) 48.4 % (40.0-70.0); PLATELET COUNT (AUTO) 241 K/uL (150-450); RED BLOOD CELL COUNT(AUTO) 4.81 MIL/uL (4.50-5.90); RED CELL DISTRIBUTION WIDTH 13.8 % (11.5-14.5)
[2017-10-21] MEDS: NICOTINE 21 MG/24 HOUR PATCH TD SCH (09:00)
[2017-10-21 09:20] LABS: ALANINE AMINOTRANSFERASE 43 U/L (12-78); ALBUMIN 3.6 g/dL (3.4-5.0); ALKALINE PHOSPHATASE 86 U/L (46-116); ANION GAP 6 mmol/L (8-16); ASPARTATE AMINOTRANSFERASE 35 U/L (15-37); BILIRUBIN,TOTAL 0.4 mg/dL (0.1-1.0); CALCIUM, TOTAL 8.6 mg/dL (8.8-10.5); CARBON DIOXIDE 32 mmol/L (22-29); CHLORIDE 104 mmol/L (98-107); CREATININE 0.71 mg/dL (0.60-1.30); FREE T4 (FREE THYROXINE) 0.81 ng/dL (0.76-1.46); GLOMERULAR FILTR. RATE CALC > 60 mL/min (>60); GLUCOSE,RANDOM 86 mg/dL (70-110); POTASSIUM 3.8 mmol/L (3.5-5.1); SODIUM SERUM 142 mmol/L (136-145); TOTAL PROTEIN, SERUM 6.2 g/dL (6.4-8.2); UREA NITROGEN, BLOOD 12 mg/dL (7-18)
[2017-10-21] MEDS ORDERED: IBUPROFEN 400 MG TABLET PO PRN (15:45)
[2017-10-21] MEDS ORDERED: ACETAMINOPHEN 325 MG TABLET PO PRN (15:45)
[2017-10-21 16:06] VITALS: BP 116/66
[2017-10-21] MEDS: LORazepam 2 MG TABLET PO PRN (16:12)
[2017-10-21] MEDS: OLANZapine 10 MG TABLET PO SCH (20:04)
[2017-10-22 01:08] VITALS: BP 126/81
[2017-10-22] MEDS: LORazepam 2 MG TABLET PO PRN ×2 (08:01→16:34)
[2017-10-22] MEDS: NICOTINE 21 MG/24 HOUR PATCH TD SCH (08:04)
[2017-10-22 08:13] VITALS: BP 108/62
[2017-10-22 16:03] VITALS: BP 100/65
[2017-10-22] MEDS: HALOPERIDOL 5 MG TABLET PO PRN (16:48)
[2017-10-22] MEDS: OLANZapine 10 MG TABLET PO SCH (20:11)
[2017-10-23] VITALS: BP 100/61
[2017-10-23 08:10] VITALS: BP 104/67
[2017-10-23] MEDS: LORazepam 2 MG TABLET PO PRN (08:17)
[2017-10-23] MEDS: NICOTINE 21 MG/24 HOUR PATCH TD SCH (08:21)
[2017-10-23] MEDS ORDERED: DOCUSATE SODIUM 100 MG CAPSULE PO PRN (10:00)
[2017-10-23] MEDS: HALOPERIDOL 5 MG TABLET PO PRN ×2 (10:12→16:16)
[2017-10-23 16:00] VITALS: BP 110/74
[2017-10-23] MEDS: OLANZapine 10 MG TABLET PO SCH (20:40)
[2017-10-24 02:25] VITALS: BP 100/66
[2017-10-24] MEDS: NICOTINE 21 MG/24 HOUR PATCH TD SCH ×2 (08:22→14:15)
[2017-10-24 08:59] VITALS: BP 118/69
[2017-10-24 16:45] VITALS: BP 119/73
[2017-10-24] MEDS ORDERED: DiphenhydrAMINE HCL 50 MG/ML VIAL ONE (18:41)
[2017-10-24] MEDS ORDERED: DiphenhydrAMINE HCL 50 MG/ML VIAL IM ONE (18:45)
[2017-10-24 19:18] LABS: GLUCOMETER DEV NAME(LOC) BV2N3; GLUCOSE,POINT OF CARE 132 MG/DL (70-110)
[2017-10-24] MEDS: OLANZapine 10 MG TABLET PO SCH (21:00)
[2017-10-25 01:14] VITALS: BP 126/82
[2017-10-25 08:35] VITALS: BP 106/77
[2017-10-25] MEDS: NICOTINE 21 MG/24 HOUR PATCH TD SCH (08:58)
[2017-10-25 13:52] VITALS: BP 120/85
[2017-10-25 16:34] VITALS: BP 117/72
[2017-10-25] MEDS: OLANZapine 10 MG TABLET PO SCH (20:24)
[2017-10-26 06:13] VITALS: BP 108/58
[2017-10-26 08:06] VITALS: BP 109/69
[2017-10-26] MEDS: LORazepam 2 MG TABLET PO PRN (08:27)
[2017-10-26] MEDS: NICOTINE 21 MG/24 HOUR PATCH TD SCH (08:28)
[2017-10-26] MEDS ORDERED: OLAN10TA3 PO (13:21)
== END 2017-10-26 15:55 | disposition home or self-care (01) | DRG 753 ==
LOC: B2S 15:01
PROVIDERS: ADMIT Psychiatry & Neurology Psychiatry; ATTEND Psychiatry & Neurology Psychiatry
DX: F31.9 Bipolar disorder, unspecified (principal); R45.851 Suicidal ideations; E55.9 Vitamin D deficiency, unspecified; F10.10 Alcohol abuse, uncomplicated; F17.200 Nicotine dependence, unspecified, uncomplicated; F20.9 Schizophrenia, unspecified; G47.00 Insomnia, unspecified; K59.00 Constipation, unspecified; F41.9 Anxiety disorder, unspecified; F19.10 Other psychoactive substance abuse, uncomplicated; Z71.41 Alcohol abuse counseling and surveillance of alcoholic; Z71.6 Tobacco abuse counseling; Z71.51 Drug abuse counseling and surveillance of drug abuser
CPT/HCPCS: 82306; 82962; 84436; 84439; J1200

== ENCOUNTER 2017-10-24 19:38 | Emergency (ER) | payer MEDICAID, OTHER ==
[~2017-10-24] VITALS: Ht 172.7 cm; Wt 86.4 kg
[2017-10-24] MEDS ORDERED: LORazepam 2 MG TABLET PO ONE (20:30)
[2017-10-25 00:44] VITALS: BP 118/65
[2017-10-26] MEDS ORDERED: OLAN10TA3 PO (13:21)
== END 2017-10-25 00:46 | disposition home or self-care (01) ==
LOC: EMS 19:39
DX: G25.9 Extrapyramidal and movement disorder, unspecified (principal); F17.210 Nicotine dependence, cigarettes, uncomplicated
CPT/HCPCS: 99283